=== PATIENT | male | born 2000 | race Two or more races ===

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

== ENCOUNTER 2023-04-11 20:20 | Emergency (ER) | payer OTHER ==
[2023-04-11 20:27] VITALS: RESP 18; BMI 24.4
[2023-04-11] MEDS ORDERED: SODIUM CHLORIDE 0.9% 500 ML INFUS.BAG IV ONE (22:24)
[2023-04-11] MEDS ORDERED: KETOROLAC TROMETHAMINE 30 MG/1 ML VIAL IVPUSH ONE (22:24)
[2023-04-11] MEDS ORDERED: ACETAMINOPHEN 1000 MG/100 ML BAG IVPB ONE (22:24)
[2023-04-11] MEDS ORDERED: ACETAMINOPHEN INJECTION 100 ML IVPB ONE (22:38)
[2023-04-11] MEDS ORDERED: KETOROLAC TROMETHAMINE 30 MG/1 ML VIAL ONE (22:38)
[2023-04-11 22:42] LABS: BASO % 0.3 % (0-2.0); EOS % 0.9 % (0-4.5); HEMATOCRIT 48.9 % (35.4-49); HEMOGLOBIN 16.4 GM/dL (11.7-16.9); LYMPH % 11.3 % (8-40); MCH 29.1 pg (25.7-33.7); MCHC 33.6 g/dl (32.0-35.9); MEAN CELL VOLUME 86.6 fl (80-96); MEAN PLT VOLUME 8.6 fl (7.5-11.1); MONO % 12.9 % (3.8-10.2); NEUT % 74.6 % (42.8-82.8); PLATELET COUNT 181 10^3/uL (134-434); RBC 5.65 M/mm3 (4.00-5.60); WHITE BLOOD COUNT 8.3 K/mm3 (4.0-10.0)
[2023-04-11 23:09] LABS: POTASSIUM 4.2 mmol/L (3.5-5.1)
[2023-04-11 23:11] LABS: BLOOD UREA NITROGEN 11.5 mg/dL (7-18); CALCIUM 9.5 mg/dL (8.5-10.1)
[2023-04-11 23:32] LABS: CREATININE 1.6 mg/dL (0.55-1.3)
[2023-04-12 00:47] LABS: PH,URINE 8.5 (5.0-8.0); URINE APPEARANCE CLEAR; URINE BILIRUBIN NEGATIVE (NEGATIVE); URINE COLOR YELLOW; URINE GLUCOSE (UA) NEGATIVE (NEGATIVE); URINE KETONE TRACE (NEGATIVE); URINE LEUK ESTERASE NEGATIVE (NEGATIVE); URINE NITRITE NEGATIVE (NEGATIVE); URINE PROTEIN NEGATIVE (NEGATIVE)
[2023-04-12 00:50] VITALS: BP 107/62; PULSE 82; TEMP 99.4
== END 2023-04-12 01:45 | disposition home or self-care (01) ==
LOC: JER 20:20
PROC: 3E033NZ Introduction of Analgesics, Hypnotics, Sedatives into Peripheral Vein, Percutaneous Approach (ICD-10-PCS; principal; 2023-04-11)
PROC: 3E033GC Introduction of Other Therapeutic Substance into Peripheral Vein, Percutaneous Approach (ICD-10-PCS; 2023-04-11)
DX: R51.9 Headache, unspecified (principal); G43.909 Migraine, unspecified, not intractable, without status migrainosus; N17.9 Acute kidney failure, unspecified; U07.1 COVID-19
CPT/HCPCS: 0241U-QW; 36415; 70450-TC; 76775-TC; 80048; 81003; 85025; 87086; 93005; 93010; 99285-25

== ENCOUNTER 2024-03-24 01:16 | Emergency (ER) | payer OTHER ==
[2024-03-24 01:36] VITALS: BP 116/75; PULSE 94; RESP 20; TEMP 99.7; BMI 27.8
[2024-03-24] MEDS ORDERED: ACETAMINOPHEN 325 MG TABLET (FP) ONE (02:00)
[2024-03-24] MEDS ORDERED: IBUPROFEN 400 MG TABLET (FP) PO ONE (02:00)
[2024-03-24] MEDS: IBUPROFEN 400 MG TABLET (FP) PO ONE (02:02)
[2024-03-24] MEDS: ACETAMINOPHEN 325 MG TABLET (FP) PO ONE (02:03)
== END 2024-03-24 02:12 | disposition home or self-care (01) ==
LOC: JER 01:16
DX: J10.1 Influenza due to other identified influenza virus with other respiratory manifestations (principal); R50.9 Fever, unspecified; R51.9 Headache, unspecified; R09.81 Nasal congestion; R05.9 Cough, unspecified; M79.10 Myalgia, unspecified site; Z20.822 Contact with and (suspected) exposure to COVID-19
CPT/HCPCS: 0241U-QW; 99283-25